=== PATIENT | female | born 1965 | race Caucasian/White ===

== ENCOUNTER → 2017-07-24 | Outpatient (CLI) | payer OTHER ==
[~2017-07-24] MED LIST: CLARITIN10 M1 PO; FLEXERIL10 MG PO; MIRALAX17 G1; NO MEDICATIONS; PROTONIX PO; TOPAMAX PO; VOLTAREN75 MG PO
--- NOTE | ~2017-07-24 | CT2 ---
[facility] A Service of [facility] & [facility] RADIOLOGY TEXT RESULTS PATIENT: RAMESH MILLER LOCATION: [facility] : 69 UNIT #: [id number] AGE: [address]: Blayne Davis MD SEX: F ORDER DR: [id number] [facility] [address] [place], [place] [address] [id number] O MR#: [id number] Acc #: [id number] NAME: RAMESH MILLER : 1965 SEX: F STUDY DATE/TIME: 07/24/2017 15:50 UNIT: [facility] ROOM: STUDY DESCRIPTION: CT Abd and Pelv W Cont Attending Physician: Blayne Davis M.D. Referring Physician: Blayne Davis M.D. Ordering Physician: Blayne Davis M.D. Primary Care Physician: John aMrt M.D. MEDICAL IMAGING REPORT This report is preliminary unless electronic signature is present EXAM CT of the abdomen and pelvis without contrast INDICATION Pain in the lower to middle abdomen, occasional nausea for [address] images were obtained from the dome of the diaphragm through the symphysis pubis following the administration of intravenous and oral contrast material. This CT examination was performed with one or more of the following radiation dose reduction techniques: automatic exposure control, adjustment of mA and/or kV according to patient size, and iterative reconstruction. FINDINGS Images through the lung bases are clear. Liver appears unremarkable. Patient does have cholelithiasis. Spleen is within normal limits. Patient does have a gastric bypass. Pancreas is within normal limits as are the adrenal glands. There is no evidence of mechanical bowel obstruction. No free fluid or adenopathy is seen within the abdomen. The patient does have a uterine fibroid. Urinary bladder is normal. No free fluid or adenopathy is seen within the pelvis. Review of bony windows does not demonstrate any aggressive osseous abnormalities. Patient does have sacral nerve stimulator. IMPRESSION 1. Cholelithiasis without any evidence of acute cholecystitis. 2. Changes of prior gastric bypass procedure without any evidence of obstruction. 3. Uterine fibroid. [facility] A Service of [facility] & [facility] RADIOLOGY TEXT RESULTS PATIENT: RAMESH MILLER LOCATION: [facility] : 69 UNIT #: [id number] AGE: [address]: Blayne Davis MD SEX: F ORDER DR: Dictated by... Vijaya Stapleton M.D. THIS IS AN ELECTRONICALLY VERIFIED REPORT Vijaya Stapleton M.D. at 07/26/2017 2:44 PM ANISA/austen TD: 07/26/2017 06:04 JOB #: [id number] MEDICAL IMAGING REPORT Page 1 of 1 COPY
[2017-07-24 14:15] LABS: HEMATOCRIT 41.9 % (35.0-45.0); MEAN CELL VOLUME 89.4 FL (83-96); MEAN CORPUSCULAR HEMOGLOBIN 29.8 PG (28-34); MEAN CORPUSCULAR HGB CONC 33.3 g/dL (30-36); MEAN PLATELET VOLUME 7.7 FL (6.5-11.5); RED BLOOD COUNT 4.69 X10e (3.90-5.30); RED CELL DISTRIBUTION WIDTH 13.7 % (11.0-15.5); WHITE BLOOD COUNT 5.4 X10e3 (4.0-10.5)
[2017-07-24 15:24] LABS: FOLATE (FOLIC ACID) 12.5 ng/mL (>5.8)
[2017-07-24 15:35] LABS: ALBUMIN SERUM 3.8 g/dL (3.5-5.0); BILIRUBIN,TOTAL 0.5 mg/dL (0.2-2.0); CALCIUM SERUM 9.2 mg/dL (8.4-10.2); GLOM FILT RATE Estimated 65.7 mL/min (>60); POTASSIUM 4.6 mmol/L (3.5-5.1); PROTEIN TOTAL SERUM 6.6 g/dL (6.0-8.3)
== END | disposition home or self-care (01) ==
LOC: CCAT 13:31
PROVIDERS: Internal Medicine
DX: R10.10 Upper abdominal pain, unspecified (principal); K80.20 Calculus of gallbladder without cholecystitis without obstruction; D25.9 Leiomyoma of uterus, unspecified; Z98.84 Bariatric surgery status
CPT/HCPCS: 36415; 74177; 80053; 82607; 82728; 82746; 83540; 84466; 85027; Q9967